=== PATIENT | female | born 1935 | race Caucasian/White ===

== ENCOUNTER 2017-03-09 11:24 | Emergency (ER) | payer BC ==
[2017-03-09] MEDS ORDERED: KETOROLAC 60 MG/2 ML VIAL IM STA (11:52)
[2017-03-09] MEDS ORDERED: ORPHENADRINE CITRATE 60MG/2ML VIAL IM ONE (11:52)
--- NOTE | 2017-03-09 11:54 | Emergency Department Record ---
History of Present Illness - General Chief Complaint: Back Pain/Injury Stated Complaint: PAIN Time Seen by Provider: 03/09/17 11:46 Source: Patient, RN notes reviewed - History of Present Illness Initial Comments: flare up of her back pain and it started 3 days ago and she has chronic low back pain and seen by Dr. Teixeira for shots but not helping anymore. She went to chiro physician and they sent her to the ED because muscles tight. Pain radiates into right buttox MD Complaint: Back pain Onset/Timin -: Days(s) Similar Symptoms Previously: No Place: Home Radiation: Left leg, Right leg Severity scale (1-10): 10 Quality: Sharp Consistency: Constant Improves With: Sitting upright Worsens With: None Context: Unknown Associated Symptoms: Denies other symptoms Treatments Prior to Arrival: Acetaminophen - Related Data Previous Rx's Medication Instructions Recorded Furosemide [Lasix] 40 mg PO DAILY #30 tablet 02/14/15 Isosorbide Mononitrate [Imdur] 30 mg PO DAILY #30 tab.er.24h 02/04/16 Cyclobenzaprine HCl [Flexeril] 5 mg PO TID #30 tab 03/09/17 Allergies Allergy/AdvReac Type Severity Reaction Status Date / Time No Known Drug Allergies Allergy Unknown Verified 03/09/17 11:31 [NO KNOWN DRUG ALLERGIES] Travel Screening - Travel/Exposure Within Last 30 Days Have you traveled within the last 30 days?: No Review of Systems Reviewed: No additional complaints except as noted below Constitutional: Reports: As per HPI. Denies: Chills, Fever, Malaise, Night sweats, Weakness, Weight change Eyes: Reports: As per HPI. Denies: Eye discharge, Eye pain, Photophobia, Vision change ENT: Reports: As per HPI. Denies: Congestion, Dental pain, Ear pain, Epistaxis , Hearing loss, Throat pain Respiratory: Reports: As per HPI. Denies: Cough, Dyspnea, Hemoptysis, Stridor, Wheezes Cardiovascular: Reports: As per HPI. Denies: Arrhythmia, Chest pain, Dyspnea on exertion, Edema, Murmurs, Orthopnea, Palpitations, Paroxysmal nocturnal dyspnea, Rheumatic Fever, Syncope Endocrine: Reports: As per HPI. Denies: Fatigue, Heat or cold intolerance, Polydipsia, Polyuria Gastrointestinal: Reports: As per HPI. Denies: Abdominal pain, Constipation, Diarrhea, Hematemesis, Hematochezia, Melena, Nausea, Vomiting Genitourinary: Reports: As per HPI. Denies: Abnormal menses, Discharge, Dyspareunia, Dysuria, Frequency, Hematuria, Incontinence, Retention, Urgency Musculoskeletal: Reports: As per HPI, Back pain. Denies: Arthralgia, Gout, Joint swelling, Myalgia, Neck pain Skin: Reports: As per HPI. Denies: Bruising, Change in color, Change in hair/ nails, Lesions, Pruritus, Rash Neurological: Reports: As per HPI. Denies: Abnormal gait, Confusion, Headache, Numbness, Paresthesias, Seizure, Tingling, Tremors, Vertigo, Weakness Psychiatric: Reports: As per HPI. Denies: Anxiety, Auditory hallucinations, Depression, Homicidal thoughts, Suicidal thoughts, Visual hallucinations Hematological/Lymphatic: Reports: As per HPI. Denies: Anemia, Blood Clots, Easy bleeding, Easy bruising, Swollen glands Past Medical History - SOCIAL HISTORY Smoking Status: Never smoker Alcohol Use: None Drug Use: None - RESPIRATORY Hx Respiratory Disorders: No Hx Asthma: Yes Hx Bronchitis: Yes Hx Pneumonia: Yes Hx Sleep Apnea: Yes - CARDIOVASCULAR Hx Cardio Disorders: Yes Hx Abnormal EKG: Yes Hx CHF: Yes Hx Edema: Yes Hx Hypertension: Yes Hx Irregular Heartbeat: Yes (atrial fibrillation) - NEURO Hx Neuro Disorders: Yes Hx Dizziness: Yes Hx Headaches: Yes Hx TIA: Yes - GI Hx GI Disorders: No - Hx Genitourinary Disorders: Yes Hx UTI: Yes Comment:: urinary incont. 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 negative: External canal tenderness Nasal Exam: Normal inspection. negative: Discharge, Sinus tenderness Mouth exam: Normal external inspection, Tongue normal Teeth exam: Normal inspection. negative: Dental caries Throat exam: Normal inspection. negative: Tonsillar erythema, Tonsillar exudate - Neck Neck exam: Normal inspection, Full ROM. negative: Tenderness - Respiratory Respiratory exam: Normal lung sounds bilaterally. negative: Respiratory distress - Cardiovascular Cardiovascular Exam: Regular rate, Normal rhythm, Normal heart sounds - GI/Abdominal GI/Abdominal exam: Soft, Normal bowel sounds. negative: Tenderness - Rectal Rectal exam: Deferred - exam: Deferred - Extremities Extremities exam: Normal inspection, Full ROM, Normal capillary refill. negative: Tenderness - Back Back exam: Reports: Normal inspection, Full ROM, Muscle spasm, Tenderness (low back pain and into the right buttox). Denies: Rash noted - Neurological Neurological exam: Alert, Normal gait, Oriented X3, Reflexes normal - Psychiatric Psychiatric exam: Normal affect, Normal mood - Skin Skin exam: Dry, Intact, Normal color, Warm Course Vital Signs 03/09/17 11:31 Temperature 97.8 F Pulse Rate 75 Respiratory 20 Rate Blood Pressure 168/90 Pulse Ox 98 - Reevaluation(s) Reevaluation #1: feeling some better when not moving and still has pain with moving around 03/09/17 12:44 Disposition Clinical Impression: Strain of lumbar paraspinal muscle Qualifiers: Encounter type: initial encounter Qualified Code(s): S39.012A - Strain of muscle, fascia and tendon of lower back, initial encounter Disposition: Home, Self-Care Condition: (1) Good Instructions: Low Back Strain (ED) Additional Instructions: follow up with Dr Chaudhry in 5 days Prescriptions: Cyclobenzaprine HCl [Flexeril] 5 mg PO TID #30 tab Forms: Patient Portal Access Time of Disposition: 12:45 Quality - Quality Measures Quality Measures: N/A - Blood Pressure Screening Does Patient Have Any of the Following: Active Dx of HTN Blood Pressure Classification: Hypertensive Reading Systolic Measurement: 168 Diastolic Measurement: 90 Screening for High Blood Pressure: Patient Exclusion, Hx of HTN [G9744]
== END 2017-03-09 12:50 | disposition home or self-care (01) ==
LOC: ER 11:24
DX: S39.012A Strain of muscle, fascia and tendon of lower back, initial encounter (principal); I48.91 Unspecified atrial fibrillation; I10 Essential (primary) hypertension; I50.9 Heart failure, unspecified; X58.XXXA Exposure to other specified factors, initial encounter; Y92.009 Unspecified place in unspecified non-institutional (private) residence as the place of occurrence of the external cause
CPT/HCPCS: 96372; 99283; J1885; J2360

== ENCOUNTER 2017-09-05 14:46 | Emergency (ER) | payer BC ==
--- NOTE | 2017-09-05 15:11 | Emergency Department Record ---
History of Present Illness - General Chief Complaint: Chest Pain Stated Complaint: CHEST PAIN Time Seen by Provider: 09/05/17 15:00 Source: Patient Mode of Arrival: Ambulatory Limitations: No limitations - History of Present Illness Initial Comments: 81 yo female presents with 20 minutes of central chest pressure prior to arrival. The discomfort is now gone. She had just eaten lunch at a local adult care unit. She did feel nauseated. She currently is completely pain free. She denies and current shortness of breath. No pain with deep inspiration. She is at [facility] for recovery from recent back surgery which is improved. Cardiology is Dr Valero for atrial fibrillation. PCP is Dr Chaudhry. She has a history of CAD with 2 stents the last in 2000. She has Afib, CHF, Cardiomyopathy. She does not recall nor does her some when her last stress test was performed. MD Complaint: Chest pain Onset/Timin -: Hour(s) Onset: After eating Pain Location: Substernal Pain Radiation: None Quality: Aching Consistency: Intermittent Improves With: Nothing Worsens With: Nothing Treatments Prior to Arrival: None - Related Data Previous Rx's Medication Instructions Recorded Furosemide [Lasix] 40 mg PO DAILY #30 tablet 02/14/15 Allergies Allergy/AdvReac Type Severity Reaction Status Date / Time No Known Drug Allergies Allergy Unknown Verified 03/09/17 11:31 [NO KNOWN DRUG ALLERGIES] Travel Screening - Travel/Exposure Within Last 30 Days Have you traveled within the last 30 days?: No - Travel/Exposure Within Last Year Have you traveled outside the [place] in the last year?: No - Additonal Travel Details Have you been exposed to anyone with a communicable illness?: No - Travel Symptoms Symptom Screening: None Review of Systems Constitutional: Denies: Chills, Fever, Night sweats, Weakness Eyes: Denies: Eye discharge ENT: Denies: Congestion, Throat pain Respiratory: Denies: Cough, Dyspnea, Hemoptysis, Stridor, Wheezes Cardiovascular: Reports: As per HPI, Chest pain, Palpitations. Denies: Syncope Endocrine: Denies: Fatigue, Polydipsia, Polyuria Gastrointestinal: Denies: Abdominal pain, Diarrhea, Nausea, Vomiting Genitourinary: Denies: Dysuria, Urgency Musculoskeletal: Denies: Arthralgia, Back pain, Joint swelling, Myalgia Skin: Denies: Bruising, Change in color, Rash Neurological: Denies: Headache, Numbness, Weakness Psychiatric: Denies: Anxiety, Visual hallucinations Hematological/Lymphatic: Denies: Blood Clots, Easy bleeding, Easy bruising, Swollen glands Past Medical History - SOCIAL HISTORY Smoking Status: Never smoker Alcohol Use: None Drug Use: None - RESPIRATORY Hx Respiratory Disorders: No Hx Asthma: Yes Hx Bronchitis: Yes Hx Pneumonia: Yes Hx Sleep Apnea: Yes - CARDIOVASCULAR Hx Cardio Disorders: Yes Hx Abnormal EKG: Yes Hx CHF: Yes Hx Edema: Yes Hx Hypertension: Yes Hx Irregular Heartbeat: Yes (atrial fibrillation) Comment:: 2- stents - NEURO Hx Neuro Disorders: Yes Hx Dizziness: Yes Hx Headaches: Yes Hx TIA: Yes - GI Hx GI Disorders: No Hx Wt Loss/Wt Gain: Yes - Hx Genitourinary Disorders: Yes Hx UTI: Yes Comment:: urinary incont. 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 negative: Conjunctival injection, Scleral icterus - ENT ENT exam: Normal exam, Mucous membranes moist Ear exam: Normal external inspection Nasal Exam: Normal inspection Mouth exam: Normal external inspection Teeth exam: Normal inspection Throat exam: Normal inspection - Neck Neck exam: Normal inspection, Full ROM. negative: Tenderness - Respiratory Respiratory exam: Normal lung sounds bilaterally. negative: Respiratory distress, Rhonchi, Stridor, Wheezes - Cardiovascular Cardiovascular Exam: Regular rate, Irregular rhythm Peripheral Pulses: 2+: Radial (R), Radial (L) - GI/Abdominal GI/Abdominal exam: Soft. negative: Normal bowel sounds, Distended, Hypoactive bowel sounds, Rebound, Rigid, Tenderness - Rectal Rectal exam: Deferred - exam: Deferred - Extremities Extremities exam: Normal inspection, Full ROM, Normal capillary refill, Pedal edema (mild +1 equal and symmetric). negative: Tenderness - Back Back exam: Reports: Normal inspection, Full ROM. Denies: Muscle spasm, Rash noted, Tenderness - Neurological Neurological exam: Alert, Normal gait, Oriented X3 - Psychiatric Psychiatric exam: Normal affect, Normal mood. negative: Agitated, Anxious - Skin Skin exam: Dry, Intact, Normal color, Warm Course Vital Signs 09/05/17 14:48 Temperature 97.6 F Pulse Rate 60 Respiratory 16 Rate Blood Pressure 147/65 Pulse Ox 97 - Reevaluation(s) Reevaluation #1: EKG at 14:58 Atrial fibrillation fate of 64, intervals QTC is 472, axis normal, LVH with LBBB, unchanged from her prior EKG on 06/27/17 The patient is 0/10 on a pain scale. She states she has no symptoms now and has not since she was at [facility] lasting about 20 minutes. Her EKG is unchanged from the EKG on 06/27/17 The CXR was reviewed. Decrease in mild PVC with CMG. 09/05/17 17:43 The labs were reviewed No acute changes on the CBC The troponin is normal The BNP is elevated at greater that 2000 but lower than prior. 09/05/17 18:13 I SW the patient at length about her future wishes regarding cardiac care. She states that if she did have a heart attach she would consent to a heart cath or if she had an abnormal stress test she would as well. I call [facility] and spoke with Dr Lutz of [facility] for Dr Valero. He accepts the patient for evaluation given no recent stress test. Medical Decision Making - Lab Data Result diagrams: 09/05/17 16:55 09/05/17 16:55 Disposition Disposition: Transfer Clinical Impression: Chest pain, Atrial fibrillation, Acute CHF (congestive heart failure) Disposition: Acute Care Hospital [facility] Reason For Transfer: chest pain, CAD, Accepting Physician: Voice Time Discussed w/Accepting Physician: 18:15 Condition: (2) Stable Forms: Patient Portal Access Time of Disposition: 18:15 Quality - Quality Measures Quality Measures: N/A - Blood Pressure Screening Does Patient Have Any of the Following: Active Dx of HTN Blood Pressure Classification: Hypertensive Reading Systolic Measurement: 147 Diastolic Measurement: 65 Screening for High Blood Pressure: Patient Exclusion, Hx of HTN [G9744]
[2017-09-05 17:03] LABS: HEMATOCRIT 38.6 % (35.0-47.0); HEMOGLOBIN 12.6 gm/dl (11.6-16.0); MEAN CELL VOLUME 90.2 fl (81-97); MEAN CORPUSCULAR HEMOGLOBIN 29.4 pg (27-33); MEAN CORPUSCULAR HGB CONC 32.6 g/dl (32-36); MEAN PLATELET VOLUME 10.6 fl (7.4-10.4); PLATELET COUNT 230 K/uL (130-400); RED BLOOD COUNT 4.28 M/uL (3.80-5.40); RED CELL DISTRIBUTION WIDTH 13.7 % (11.5-14.5); WHITE BLOOD COUNT W/O DIFF 10.2 K/uL (4.2-12.2)
[2017-09-05 17:13] LABS: BLOOD UREA NITROGEN 10 mg/dL (8-23); CREATININE 0.8 mg/dL (0.5-0.9); EST GLOMERULAR FILTRATION RATE > 60 mL/min
[2017-09-05 17:14] LABS: INR 1.6; PROTHROMBIN TIME (PATIENT) 17.7 SECONDS (9.5-12.1)
[2017-09-05 17:16] LABS: GLUCOSE,RANDOM 109 mg/dL (74-109)
--- NOTE | 2017-09-06 11:02 | RADIOLOGY REPORT ---
EXAM: CHEST, TWO VIEWS HISTORY: CHEST PAIN SINCE NOON TODAY. TECHNIQUE: PA and lateral views of the chest were obtained. Comparison: Two view chest 05/18/16. FINDINGS: Cardiomegaly is again evident. Mild blunting of the costophrenic angles slightly less pronounced than before. There also appears to be decrease in the interstitial prominence previously seen and regression in pulmonary venous hypertension in the interval. No acute alveolar infiltrate seen. Thoracic curve to the right again evident. There appears to be an implantable loop recorder device in place along the lower left anterior chest wall, also present previously. IMPRESSION: 1. PERSISTENT CARDIOMEGALY. MILD BLUNTING OF THE LATERAL COSTOPHRENIC ANGLES DECREASED FROM BEFORE AND ALSO DECREASE IN VASCULAR CONGESTION SEEN BACK ON 02/23. 2. THERE IS PROBABLY A LOOP RECORDER DEVICE IN PLACE OVERLYING THE LOWER LEFT ANTERIOR CHEST WALL, ALSO PRESENT PREVIOUSLY. JOB NUMBER: [id number] MTDD
== END 2017-09-05 22:00 | disposition short-term general hospital (02) ==
LOC: ER 14:46
DX: R07.89 Other chest pain (principal); I50.9 Heart failure, unspecified; I48.91 Unspecified atrial fibrillation; R11.0 Nausea; R06.02 Shortness of breath; Z95.5 Presence of coronary angioplasty implant and graft; I10 Essential (primary) hypertension; I25.10 Atherosclerotic heart disease of native coronary artery without angina pectoris
CPT/HCPCS: 71046; 80048; 83880; 84484; 85027; 85610; 85730; 93005; 93010; 99285

== ENCOUNTER 2018-06-07 17:55 | Observation (INO) | payer BC ==
--- NOTE | 2018-06-07 18:15 | Emergency Department Record ---
History of Present Illness - General Chief Complaint: Dizziness Stated Complaint: dizziness Time Seen by Provider: 06/07/18 17:59 Source: Patient Mode of Arrival: Ambulatory Limitations: No limitations - History of Present Illness Initial Comments: 82 yo female presents to ED for evaluation of dizziness with position changes that began approximately 8 hours ago. Patient reports that change in position worsens her symptoms, denies that [id number] movement of the head worsens her symptoms. Patient denies fevers, chills, or recent illness. Patient denies focal weakness symptoms or change in vision/speech. MD Complaint: Dizziness Onset/Timin -: Hour(s) Description: Off-balance Improves With: Nothing Worsens With: Position Associated Symptoms: Denies other symptoms - Gavin Coma Scale Eye Response: (4) Open spontaneously Motor Response: (6) Obeys commands Verbal Response: (5) Oriented Jackson Total: 15 - Related Data Home Medications Medication Instructions Recorded Confirmed Last Taken Acetaminophen [Tylenol 325Mg] 650 mg PO Q6H 06/07/18 06/07/18 06/07/18 Benzonatate [Tessalon Perle] 100 mg PO QHS 06/07/18 06/07/18 06/06/18 Guaifenesin/Dextromethorphan 237 ml PO QHS PRN 06/07/18 06/07/18 Unknown [Robitussin Cough-Chest Dm Liq] Lisinopril 20 mg PO DAILY 06/07/18 06/07/18 06/07/18 Loperamide HCl [Immodium] 2 mg PO ASDIR PRN 06/07/18 06/07/18 Unknown Metoprolol Succinate 50 mg PO DAILY 06/07/18 06/07/18 06/07/18 Oxybutynin Chloride [Oxybutynin 15 mg PO DAILY 06/07/18 06/07/18 06/07/18 Chloride ER] Vit C/Vit E AC/Lut/Copper/Zinc 1 tab PO DAILY 06/07/18 06/07/18 Unknown [PreserVision Lutein Softgel] Previous Rx's Medication Instructions Recorded Furosemide [Lasix] 40 mg PO DAILY #30 tablet 02/14/15 Allergies Allergy/AdvReac Type Severity Reaction Status Date / Time No Known Drug Allergies Allergy Unknown Verified 06/07/18 18:52 [NO KNOWN DRUG ALLERGIES] Travel Screening - Travel/Exposure Within Last 30 Days Have you traveled within the last 30 days?: No - Travel/Exposure Within Last Year Have you traveled outside the [place] in the last year?: No - Additonal Travel Details Have you been exposed to anyone with a communicable illness?: No - Travel Symptoms Symptom Screening: None Review of Systems Constitutional: Denies: Chills, Fever, Malaise, Night sweats Eyes: Denies: Eye discharge, Eye pain, Photophobia ENT: Denies: Congestion, Ear pain, Epistaxis Respiratory: Denies: Cough, Dyspnea Cardiovascular: Denies: Chest pain, Dyspnea on exertion Endocrine: Denies: Fatigue, Heat or cold intolerance Gastrointestinal: Denies: Abdominal pain, Nausea, Vomiting Genitourinary: Denies: Incontinence, Retention Musculoskeletal: Denies: Arthralgia, Back pain Skin: Denies: Bruising, Change in color Neurological: Reports: Vertigo. Denies: Abnormal gait, Confusion, Headache, Tingling, Tremors Psychiatric: Denies: Anxiety Hematological/Lymphatic: Denies: Anemia, Blood Clots Past Medical History - SOCIAL HISTORY Smoking Status: Never smoker Alcohol Use: None Drug Use: None - RESPIRATORY Hx Respiratory Disorders: No Hx Asthma: Yes Hx Bronchitis: Yes Hx Pneumonia: Yes Hx Sleep Apnea: Yes - CARDIOVASCULAR Hx Cardio Disorders: Yes Hx Abnormal EKG: Yes Hx CHF: Yes Hx Edema: Yes Hx Hypertension: Yes Hx Irregular Heartbeat: Yes (atrial fibrillation) Comment:: 2- stents - NEURO Hx Neuro Disorders: Yes Hx Dizziness: Yes Hx Headaches: Yes Hx TIA: Yes - GI Hx GI Disorders: No Hx Wt Loss/Wt Gain: Yes - Hx Genitourinary Disorders: Yes Hx UTI: Yes Comment:: urinary incont. 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 negative: Conjunctival injection, Periorbital swelling, Periorbital tenderness, Scleral icterus - ENT Ear exam: negative: Auricular hematoma, Auricular trauma Nasal Exam: negative: Active bleeding, Discharge, Dried blood, Foreign body Mouth exam: negative: Drooling, Laceration, Muffled voice, Tongue elevation - Neck Neck exam: Normal inspection. negative: Meningismus, Tenderness - Respiratory Respiratory exam: Normal lung sounds bilaterally. negative: Respiratory distress, Rhonchi, Stridor, Wheezes - Cardiovascular Cardiovascular Exam: Normal heart sounds, Irregular rhythm - GI/Abdominal GI/Abdominal exam: Soft. negative: Distended, Rebound, Rigid, Tenderness - Rectal Rectal exam: Deferred - exam: Deferred - Extremities Extremities exam: negative: Calf tenderness, Tenderness - Back Back exam: Denies: CVA tenderness (R), CVA tenderness (L) - Neurological Neurological exam: Alert, Normal gait, Oriented X3 - Psychiatric Psychiatric exam: Normal affect, Normal mood - Skin Skin exam: Normal color. negative: Abrasion Type of lesion: negative: abrasion Course Vital Signs 06/07/18 17:59 Temperature 97.5 F L Pulse Rate 76 Respiratory 18 Rate Blood Pressure 156/90 Pulse Ox 97 - Reevaluation(s) Reevaluation #1: 06/07/18 18:16 EKG: Atrial Fibrillation 84 LBBB No significant change from previous Reevaluation #2: 06/07/18 18:45 Laboratory studies were reviewed and are grossly unremarkable for an acute process. CT Brain: No acute intra-cranial process. Reevaluation #3: 06/07/18 19:02 UA reviewed and appears negative for an acute process. Patient reports feeling very off-balance when standing to provide UA sample with bedside commode. Will admit as the patient is a significant fall risk and on anticoagulation medications. Reevaluation #4: 06/07/18 19:09 Case was discussed with Tg Carmnoa NP, will accept admission at this time. Medical Decision Making - Lab Data Result diagrams: 06/07/18 18:17 06/07/18 18:17 Disposition Disposition: Admit Clinical Impression: Vertigo Disposition: Still a Patient at [facility] Decision to Admit: Admit from ER Decision to Admit Date: 06/07/18 Decision to Admit Time: 19:10 Condition: (2) Stable Forms: Patient Portal Access Time of Disposition: 19:10 Quality - Quality Measures Quality Measures: N/A - Blood Pressure Screening Does Patient Have Any of the Following: Active Dx of HTN Blood Pressure Classification: Hypertensive Reading Systolic Measurement: 156 Diastolic Measurement: 90 Screening for High Blood Pressure: Patient Exclusion, Hx of HTN [G9744]
[2018-06-07] MEDS ORDERED: MECLIZINE 25 MG TABLET PO ONE (18:20)
[2018-06-07 18:24] LABS: BASO % 0.5 % (0-6); EOS % 2.5 % (0-6); GRAN % 50.5 % (47-80); HEMATOCRIT 45.5 % (35.0-47.0); HEMOGLOBIN 14.9 gm/dl (11.6-16.0); MEAN CORPUSCULAR HEMOGLOBIN 29.8 pg (27-33); MEAN CORPUSCULAR HGB CONC 32.7 g/dl (32-36); MEAN PLATELET VOLUME 10.5 fl (7.4-10.4); MONO % 9.5 % (0-9); PLATELET COUNT 216 K/uL (130-400); RED CELL DISTRIBUTION WIDTH 13.8 % (11.5-14.5); WHITE BLOOD COUNT W/O DIFF 7.3 K/uL (4.2-12.2)
[2018-06-07 18:37] LABS: BLOOD UREA NITROGEN 11 mg/dL (8-23); CREATININE 0.8 mg/dL (0.5-0.9); EST GLOMERULAR FILTRATION RATE > 60 mL/min
[2018-06-07 18:38] LABS: TOTAL PROTEIN 7.3 g/dL (6.6-8.7)
[2018-06-07 18:40] LABS: GLUCOSE,RANDOM 83 mg/dL (74-109)
[2018-06-07 18:42] LABS: ALB/GLOB RATIO 1.3 (1.1-1.8); ALBUMIN 4.1 g/dL (4.0-5.0); ALT/SGPT 10 U/L (<33); AST/SGOT 16 U/L (10.0-35.0)
[2018-06-07 18:43] LABS: ALKALINE PHOSPHATASE 175 U/L (35-104)
[2018-06-07 19:01] LABS: URINE APPEARANCE CLEAR; URINE BILIRUBIN NEGATIVE (NEGATIVE); URINE BLOOD NEGATIVE (NEGATIVE); URINE COLOR YELLOW; URINE GLUCOSE (UA) NEGATIVE (NEGATIVE); URINE KETONE NEGATIVE (NEGATIVE); URINE LEUKOCYTE ESTERASE NEGATIVE (NEGATIVE); URINE NITRITE NEGATIVE (NEGATIVE); URINE PROTEIN NEGATIVE (NEGATIVE); URINE UROBILINOGEN 0.2 E.U./dL (0.20 - 1.00)
[2018-06-07] MEDS ORDERED: 0.9 % SODIUM CHLORIDE 1000ML 1,000 ML IV PRN (19:47)
[2018-06-07] MEDS ORDERED: MECLIZINE 25 MG TABLET PO PRN (19:47)
[2018-06-07] MEDS ORDERED: ACETAMINOPHEN 325 MG TAB PO PRN (19:47)
[2018-06-07] MEDS ORDERED: ALBUTEROL HFA 8 GM INHALER INH PRN (19:47)
[2018-06-07] MEDS ORDERED: GUAIFENESIN/D-METH. 10 ML UDC PO PRN (20:00)
[2018-06-07] MEDS: BENZONATATE 100 MG CAPSULE PO SCH (21:30)
[2018-06-07] MEDS: TRAZODONE 50 MG TABLET PO SCH (21:31)
[2018-06-07] MEDS: DABIGATRAN ETEXILATE MESYLATE 150 MG PO SCH (21:52)
[2018-06-08] MEDS: POTASSIUM CHLORIDE 10 MEQ TAB PO SCH ×2 (06:08→15:32)
--- NOTE | 2018-06-08 07:19 | CT SCAN REPORT ---
EXAM: CT OF THE BRAIN WITHOUT CONTRAST HISTORY: INJURY. TECHNIQUE: Sequential axial images were obtained from the foramen magnum to the vertex without contrast administration. FINDINGS: Age appropriate cortical atrophy. Periventricular small vessel ischemia. No large territorial infarct, hemorrhage, mass effect or midline shift. No extraaxial fluid collection. The orbits, paranasal sinuses, and mastoid air cells are normal. IMPRESSION: 1. NO ACUTE INTRACRANIAL ABNORMALITY IS APPRECIATED. 2. PERIVENTRICULAR SMALL VESSEL ISCHEMIA. JOB NUMBER: [id number] [facility]
[2018-06-08] MEDS ORDERED: FLUTICASONE PROPIONATE 50MCG NASAL 16 GM BTL ONE (09:54)
[2018-06-08] MEDS ORDERED: AMLODIPINE BESYLATE 5MG TAB PO SCH ×2 (10:00→22:00)
[2018-06-08] MEDS: FLUTICASONE PROPIONATE 50MCG NASAL 16 GM BTL SCH ×2 (10:28→21:26)
[2018-06-08] MEDS: METOPROLOL SUCC 50 MG TABLET PO SCH (10:29)
[2018-06-08] MEDS: FUROSEMIDE 40 MG TABLET PO SCH (10:29)
[2018-06-08] MEDS: TRAZODONE 50 MG TABLET PO SCH (10:29)
[2018-06-08] MEDS: OXYBUTYNIN CHLORIDE 5MG TABLET PO SCH ×3 (10:29→21:27)
[2018-06-08] MEDS: LISINOPRIL 20 MG TABLET PO SCH (10:29)
--- NOTE | 2018-06-08 11:45 | Rehab Evaluation ---
Patient Information - Patient Information Diagnosis: Dizziness Ordered Treatment: PT Evaluate and Treat Status: Initial Evaluation Surgery: No History: Detail (Pt presented to ED 06/07/18 w/one day duration of dizziness. She was admitted to [facility] due to fall risk and current anti-coagulation.) Past Medical/Surgical Hx: PAST MEDICAL/SURGICAL HISTORY Past Surgical History fx arm repair, cataract, hyst, ankle surgery, cardiac stents (2) back surgery PMH - Respiratory Hx Respiratory Disorders No Hx Asthma Yes Hx Bronchitis Yes Hx Pneumonia Yes Hx Sleep Apnea Yes Hx Tuberculosis No Hx of CPAP No PMH - Cardiovascular Hx Cardiovascular Disorders Yes Hx Abnormal EKG Yes Hx Congestive Heart Failure Yes Hx Edema Yes Hx Hypertension Yes Hx Irregular Heartbeat Yes: atrial fibrillation Hx Transient Ischemic Attacks Yes (TIA) Comment: 2- stents PMH - Neuro Hx Neurological Disorders Yes Hx Dizziness Yes Hx Headaches Yes Hx Syncope Yes Hx Transient Ischemic Attacks Yes (TIA) PMH - GI Hx Gastrointestinal Disorders No Hx Weight Loss/Weight Gain Yes PMH - Hx Genitourinary Disorders Yes Patient No Hx Urinary Tract Infection Yes Comment: urinary incont. 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 She reports that she had a fall about a month ago when she tripped over a magazine rack in her room. She had foot and knee abrasions but no major injury. She was able to crawl to the emergency pull cord for assistance to get up from the floor.) Social History: Detail Precautions: [place], Fall - Time With Patient Treatment Procedures: Detail (PT evaluation) Subjective Information - Subjective Information Per Patient (Pt lying in bed on her L side, awake, alert, cooperative for therapy. Denies dizziness in L sidelying, mild dizziness in supine. Increased dizziness w/coming to sit, mild dizziness w/coming to stand. Denies nausea or headache.) Objective Data - Pain Pain Present: No - Mental Status Patient Orientation: Oriented x3 - Visual Perception Appears within normal limits for therapeutic activities - ROM Within normal limits - Strength/Tone Within normal limits - Coordination Appears within normal limits for therapeutic activities - Bed Mobility Needs Assist (Required minimal assist to move from L sidelying to sitting at edge of bed due to fear of falling from bed.) - Transfers Needs Assist (Supervision for sit/stand transtion from bed to walker, bedside chair<>walker. VCs to reach for chair armrest to control descent.) - Balance Balance Sitting: Good Balance Standing: Good (With front wheeled walker) - Gait Detail (Pt ambulated from bedside to end of unit and back to bedside chair w/ four wheeled walker and CGA/SBA. Denied dizziness while walking, no shortness of breath or difficulty.) - Special Tests Yes (Performed B hallpike tests w/pt in bed. Did not observe nystagmus clearly but pt reported increased symptoms (intensity and duration) in L hallpike than R. Performed canalith repositioning maneuver for R posterior semicircular canalithiasis prior to getting pt out of bed.) Therapy Assessment - Therapy Assessment Detail (Pt reports dizziness w/position changes; she experienced increased symptoms in L hallpike position that resolved within a minute or two. She may be experiencing benign paroxysmal positional vertigo, but she is being further assessed medically. She is a good candidate for inpatient physical therapy.) Patient Education - Patient Education Teaching Topic: Precautions Response: Verbalize Understanding Teaching Method: Discussion Teaching Recipient: Patient Barriers To Learning: None Problem List - Problem List Physical Therapy Problem List: Detail (1. Dizziness w/position changes. 2. History of fall. 3. Requires assist for bed mobility.) Goals - Goals Physical Therapy Goals: 1. Pt will safely get into and out of bed w/ supervision. 2. Pt will report decreased dizziness w/position changes. 3. Pt will demonstrate good understanding of moving slowly through position changes to manage symptoms. Prognosis - Prognosis Good Plan - Plan Physical Therapy Plan: Pt will be seen 1-2x daily M-F as needed to facilitate bed mobility, transfers, gait, and self-management.
[2018-06-08] MEDS: DABIGATRAN ETEXILATE MESYLATE 150 MG PO SCH ×2 (11:49→21:26)
--- NOTE | 2018-06-08 21:14 | History & Physical ---
History of Present Illness - Date of Service Date of Service for History & Physical: 06/09/18 - History of Present Illness Admitting Diagnosis: Vertigo. Fall Risk History of Present Illness: 82 yo female presents for admission for dizziness. Pt lives in senior assisted living [facility], was getting her hair done, stood from the chair and felt dizzy, did not resolve with time or rest. This has happened before, but pt reports this sensation is a little different. PMH TIAs HTN, ... 06/07/18 Pt presented to [facility] ER for dizziness. EKG negative for acute process, CT head negative for bleed Pt was medicated with antivert, little resolve. WBC 7.3, Hgb 14.9, Hct, Plt 216 NA 139, K 3.9, Cl 100, Co 27, BUN 11, Cr 0.8, >60, Alk Phose 175, Trop <0.010 BP 156/90, HR 76, RR 18, 97RA, 97.5F Admission for dizziness 06/08/18 Pt resting in bed, no acute distress. Pt a&ox4, NIH negative. Pt is moving all extremities with no difficult, some assistance needed to sit up but denies making dizziness any better or worse. HEENT normal outside of left TM bulging with fluid level noted. Right TM normal. Lungs diminished, jackie bases have fine crackles noted. No SOB noted. +1 pitting edema to jackie ankles, pulses 3+ PT/DP. Pt is tolerating PO with no issues. Awaiting carotid US and orthostatic vitals. Dr Sousa updated on admission and reports to continue with hospitalist admission but he will see pt Tuesday 1pm for follow up. Update- pt has positive orthostatic BP and HR. Med Rec completed, trazadone BID changed to HS, metoprolol held, Norvasc changed to HS PCP [facility] Travel Screening - Travel/Exposure Within Last 30 Days Have you traveled within the last 30 days?: No - Travel/Exposure Within Last Year Have you traveled outside the [place] in the last year?: No - Additonal Travel Details Have you been exposed to anyone with a communicable illness?: No - Travel Symptoms Symptom Screening: None Review of Systems Constitutional: Denies: Chills, Fever, Malaise, Night sweats Eyes: Denies: Eye discharge, Eye pain, Photophobia ENT: Denies: Congestion, Ear pain, Epistaxis Respiratory: Denies: Cough, Dyspnea Cardiovascular: Denies: Chest pain, Dyspnea on exertion Endocrine: Denies: Fatigue, Heat or cold intolerance Gastrointestinal: Denies: Abdominal pain, Nausea, Vomiting Genitourinary: Denies: Incontinence, Retention Musculoskeletal: Denies: Arthralgia, Back pain Skin: Denies: Bruising, Change in color Neurological: Reports: Vertigo. Denies: Abnormal gait, Confusion, Headache, Tingling, Tremors Psychiatric: Denies: Anxiety Hematological/Lymphatic: Denies: Anemia, Blood Clots Past Medical History - SOCIAL HISTORY Smoking Status: Never smoker Alcohol Use: None Drug Use: None - RESPIRATORY Hx Respiratory Disorders: No Hx Asthma: Yes Hx Bronchitis: Yes Hx Pneumonia: Yes Hx Sleep Apnea: Yes - CARDIOVASCULAR Hx Cardio Disorders: Yes Hx Abnormal EKG: Yes Hx CHF: Yes Hx Edema: Yes Hx Hypertension: Yes Hx Irregular Heartbeat: Yes (atrial fibrillation) Comment:: 2- stents - NEURO Hx Neuro Disorders: Yes Hx Dizziness: Yes Hx Headaches: Yes Hx TIA: Yes - GI Hx GI Disorders: No Hx Wt Loss/Wt Gain: Yes - Hx Genitourinary Disorders: Yes Hx UTI: Yes Comment:: urinary incont. 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, surgically removed) Hx Blood Transfusions: Yes Hx Blood Transfusion Reaction: No Family Medical History Any Significant Family History?: No Hx Heart Disease: Mother Hx Stroke: Father H&P Meds/Allergies - Allergies Allergies: Allergies Allergy/AdvReac Type Severity Reaction Status Date / Time No Known Drug Allergies Allergy Unknown Verified 06/07/18 18:52 [NO KNOWN DRUG ALLERGIES] - Home Medications Home Medications Medication Instructions Recorded Confirmed Last Taken Acetaminophen [Tylenol 325Mg] 650 mg PO Q6H 06/07/18 06/07/18 06/07/18 Benzonatate [Tessalon Perle] 100 mg PO QHS 06/07/18 06/07/18 06/06/18 Guaifenesin/Dextromethorphan 237 ml PO QHS PRN 06/07/18 06/07/18 Unknown [Robitussin Cough-Chest Dm Liq] Lisinopril 20 mg PO DAILY 06/07/18 06/07/18 06/07/18 Loperamide HCl [Immodium] 2 mg PO ASDIR PRN 06/07/18 06/07/18 Unknown Metoprolol Succinate 50 mg PO DAILY 06/07/18 06/07/18 06/07/18 Oxybutynin Chloride [Oxybutynin 15 mg PO DAILY 06/07/18 06/07/18 06/07/18 Chloride ER] Vit C/Vit E AC/Lut/Copper/Zinc 1 tab PO DAILY 06/07/18 06/07/18 Unknown [PreserVision Lutein Softgel] Previous Rx's Medication Instructions Recorded Furosemide [Lasix] 40 mg PO DAILY #30 tablet 02/14/15 - Active Medications Active Medications: Current Medications Acetaminophen (Tylenol 325mg) 650 mg PO Q6H PRN PRN Reason: PAIN - MILD(1-4)/FEVER Albuterol Sulfate (Ventolin Hfa) 2 puff INH Q4H PRN PRN Reason: DIFFICULTY IN BREATHING Amlodipine Besylate (Norvasc) 5 mg PO QHS [facility] Benzonatate (Tessalon) 100 mg PO QHS [facility] Last Admin: 06/07/18 21:30 Dose: 100 mg Fluticasone Propionate (Flonase) 2 spray NA BID [facility] Last Admin: 06/08/18 10:28 Dose: 2 spray Furosemide (Lasix) 40 mg PO DAILY [facility] Last Admin: 06/08/18 10:29 Dose: 40 mg Guaifenesin (Robitussin Dm) 10 ml PO QHS PRN PRN Reason: COUGH Sodium Chloride () 1,000 mls @ 15 mls/hr IV .Q24H PRN PRN Reason: LARGE VOLUME IV Lisinopril (Zestril) 20 mg PO DAILY [facility] Last Admin: 06/08/18 10:29 Dose: 20 mg Meclizine HCl (Antivert) 25 mg PO Q8H PRN PRN Reason: DIZZINESS Metoprolol Succinate (Toprol Xl) 50 mg PO DAILY [facility] Last Admin: 06/08/18 10:29 Dose: Not Given Non-Formulary Medication (Dabigatran Etexilate Mesylate [Pradaxa]) 150 mg PO BID [facility] Last Admin: 06/08/18 11:49 Dose: 150 mg Oxybutynin Chloride (Ditropan) 5 mg PO TID [facility] Last Admin: 06/08/18 15:31 Dose: 5 mg Potassium Chloride (Klor-Con) 10 meq PO BIDAC [facility] Last Admin: 06/08/18 15:32 Dose: 10 meq Trazodone HCl (Desyrel) 100 mg PO QHS [facility] Physical Exam - Vital Signs Vital Signs: Vital Signs - Last 24 Hrs Temp Pulse Resp BP Pulse Ox 06/08/18 16:00 98.1 F 90 16 146/73 96 06/08/18 12:00 97.0 F L 81 16 138/74 96 06/08/18 09:00 16 06/08/18 08:00 98.1 F 74 16 152/71 98 06/08/18 05:51 64 18 135/69 95 06/07/18 21:00 16 - General General Appearance: Alert, Oriented x3, Cooperative, No acute distress Limitations: No limitations - Head Head exam: Atraumatic, Normocephalic, Normal inspection Head exam detail: negative: Abrasion, Contusion, Meraz's sign, General tenderness, Hematoma, Laceration - Eye Eye exam: Normal appearance. negative: Conjunctival injection, Periorbital swelling, Periorbital tenderness, Scleral icterus - ENT ENT exam: Mucous membranes moist, Normal external ear exam, Other (left TM fluid level, right TM normal) Ear exam: negative: Auricular hematoma, Auricular trauma Nasal Exam: negative: Active bleeding, Discharge, Dried blood, Foreign body Mouth exam: negative: Drooling, Laceration, Muffled voice, Tongue elevation - Neck Neck exam: Normal inspection. negative: Meningismus, Tenderness - Respiratory Respiratory exam: Decreased breath sounds, Other (fince crackles jackie bases). negative: Respiratory distress, Rhonchi, Stridor, Wheezes - Cardiovascular Cardiovascular Exam: Normal heart sounds, Irregular rhythm Peripheral Pulses: 3+: Radial (R), Radial (L), Dorsalis Pedis (R), Dorsalis Pedis (L) - GI/Abdominal GI/Abdominal exam: Soft. negative: Distended, Rebound, Rigid, Tenderness - Rectal Rectal exam: Deferred - exam: Deferred - Extremities Extremities exam: negative: Calf tenderness, Tenderness - Back Back exam: Denies: CVA tenderness (R), CVA tenderness (L) - Neurological Neurological exam: Alert, CN II-XII intact, Normal gait, Oriented X3 - Psychiatric Psychiatric exam: Normal affect, Normal mood - Skin Skin exam: Normal color. negative: Abrasion Type of lesion: negative: abrasion Results - Labs Result Diagrams: 06/07/18 18:17 06/07/18 18:17 - Imaging and Cardiology CT scan - head Status: Report reviewed VTE H&P Assessment - Risk for VTE Risk for VTE: Yes Risk Level: High Risk Assessment Date: 06/08/18 Risk Assessment Time: 10:00 VTE Orders Placed or Will Be Placed: No VTE Reason for No Prophylaxis: Contraindicated (pt on anticoagulation) Plan - Detailed Diagnosis and Plan (1) Vertigo Current Visit: Yes Status: Acute Base Code: R42 - DIZZINESS AND GIDDINESS Comment: 06/08/18 -anitvert PRN -Flonase for left otitis effusion -orthostatic vitals positive -Carotid US completed- pending report -CT head reviewed, no acute process Reassess AM for d/c assisted living 06/09/18 -Dizziness improved/resolved (only with head repositioning) -D/C to [facility], home PT with vestibular activities -PCP Merry Tuesday 1pm (2) DVT prophylaxis Current Visit: No Status: Acute Base Code: [id number] - Comment: 06/09/18 -Patient at high risk with Afib, age and restricted mobility -Continue patient's home medication of pradaxa 150mg PO BID
[2018-06-08] MEDS: BENZONATATE 100 MG CAPSULE PO SCH (21:27)
[2018-06-08] MEDS ORDERED: TRAZODONE 50 MG TABLET PO SCH (22:00)
[2018-06-09] MEDS: POTASSIUM CHLORIDE 10 MEQ TAB PO SCH (06:53)
--- NOTE | 2018-06-09 07:16 | US CAROTID DOPPLER REPORT ---
EXAM: BILATERAL CAROTID DOPPLER ULTRASOUND HISTORY: DIZZINESS. TECHNIQUE: Routine bilateral carotid arterial Doppler ultrasound examination was performed. Comparison: Carotid Doppler ultrasound 02/13/15. FINDINGS: 3 Vessel Right Peak Systolic/ End Diastolic Velocities Left Peak Systolic/ End Diastolic Velocities Proximal Common Carotid Artery 69.2 cm/s /7.6 cm/s 66.4 cm/s /10.4 cm/s Mid Common Carotid Artery 57 cm/s /8.7 cm/s 55.9 cm/s /10.4 cm/s Distal Common Carotid Artery 43.8 cm/s /7.6 cm/s 69.9 cm/s /8.7 cm/s Proximal Internal Carotid Artery 61.9 cm/s /9.5 cm/s 38.9 cm/s /14.2 cm/s Mid Internal Carotid Artery 74.1 cm/s /8.6 cm/s 68 cm/s /21.7 cm/s Distal Internal Carotid Artery 57.6 cm/s /13.0 cm/s 60.1 cm/s /15.6 cm/s Carotid Bulb 47.9 cm/s /6.0 cm/s 52.6 cm/s /8.5 cm/s Proximal External Carotid Artery 109 cm/s /8.9 cm/s 84 cm/s /10.2 cm/s d d d Right Flow Left Flow Vertebral Artery Antegrade/40.5 cm/s Antegrade/40.2 cm/s The right ICA/CCA ratio is 1.3. The left ICA/CCA ratio is 1.2. On the right, calcified plaques are noted in the distal CCA, right carotid bulb. On the left, small calcified plaques are noted in the mid and distal CCA. IMPRESSION: 1. 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 ANTEGRADE FLOW IN BOTH VERTEBRAL ARTERIES. JOB NUMBER: [id number] [facility]
[2018-06-09] MEDS: OXYBUTYNIN CHLORIDE 5MG TABLET PO SCH (09:50)
[2018-06-09] MEDS: FUROSEMIDE 40 MG TABLET PO SCH (09:50)
[2018-06-09] MEDS: LISINOPRIL 20 MG TABLET PO SCH (09:51)
[2018-06-09] MEDS: FLUTICASONE PROPIONATE 50MCG NASAL 16 GM BTL SCH (09:51)
[2018-06-09] MEDS: DABIGATRAN ETEXILATE MESYLATE 150 MG PO SCH (09:52)
--- NOTE | 2018-06-09 10:52 | Physical Therapy Tx Note ---
Physical Therapy Tx Note - Treatment Note Tolerated: Fair Total Time Spent With Patient: 20 Physical Therapy Tx Note: Detail (The patient was up in chair when PT arrived. The patient had complaints of slight lightheadedness but not as bad as yesterday. The patient was independent with sit to and from stand transfer. The patient ambulated with 4 wheeled walker a distance of 200 feet x 1 independently. The patient experienced increased lightheadedness when turning with her walker and sitting. The symptoms lasted aprox 45 seconds and then diminished. Patient also reported increased dizziness when tilting head to the left when talking to her son last night. Discussed with patient the importance of moving slowly through transitional movements and waiting for any symptoms of lightheadedness to pass. The patient exhibited good understanding of how to manage her symptoms and of possible inner ear/ vestibular system invovlement. Discussed with casework specialist need for ongoing vestibular rehab with a Home PT when patient is discharged.) Physical Therapy Problem List: Detail (1. Dizziness w/position changes. 2. History of fall. 3. Requires assist for bed mobility.) Physical Therapy Goals: 1. Pt will safely get into and out of bed w/ supervision. 2. Pt will report decreased dizziness w/position changes. 3. Pt will demonstrate good understanding of moving slowly through position changes to manage symptoms. Physical Therapy Plan: Pt will be seen 1-2x daily M-F as needed to facilitate bed mobility, transfers, gait, and self-management. Home PT for vestibular Rehab is recommended upon discharge.
--- NOTE | 2018-06-09 11:43 | Discharge Summary ---
Providers Discharge Summary Date: 06/09/18 Date of admission: 06/07/18 19:35 Expected Date of Discharge: 06/09/18 Attending physician: CONCETTA JAUREGUI Primary care physician: Suhail Sousa Physical Exam - Vital Signs Vital Signs: Vital Signs - Last 24 Hrs Temp Pulse Resp BP Pulse Ox 06/09/18 09:00 20 06/09/18 08:00 97.7 F 78 20 139/72 94 L 06/09/18 06:00 80 20 140/98 06/08/18 21:56 79 169/91 06/08/18 20:00 98.1 F 76 20 178/98 96 06/08/18 16:00 98.1 F 90 16 146/73 96 06/08/18 12:00 97.0 F L 81 16 138/74 96 - General General Appearance: Alert, Oriented x3, Cooperative, No acute distress Limitations: No limitations - Head Head exam: Atraumatic, Normocephalic, Normal inspection Head exam detail: negative: Abrasion, Contusion, Meraz's sign, General tenderness, Hematoma, Laceration - Eye Eye exam: Normal appearance. negative: Conjunctival injection, Periorbital swelling, Periorbital tenderness, Scleral icterus - ENT ENT exam: Mucous membranes moist, Normal external ear exam, Other (left TM fluid level, right TM normal) Ear exam: negative: Auricular hematoma, Auricular trauma Nasal Exam: negative: Active bleeding, Discharge, Dried blood, Foreign body Mouth exam: negative: Drooling, Laceration, Muffled voice, Tongue elevation - Neck Neck exam: Normal inspection. negative: Meningismus, Tenderness - Respiratory Respiratory exam: Decreased breath sounds, Other (fince crackles jose bases). negative: Respiratory distress, Rhonchi, Stridor, Wheezes - Cardiovascular Cardiovascular Exam: Normal heart sounds, Irregular rhythm Peripheral Pulses: 3+: Radial (R), Radial (L), Dorsalis Pedis (R), Dorsalis Pedis (L) - GI/Abdominal GI/Abdominal exam: Soft. negative: Distended, Rebound, Rigid, Tenderness - Rectal Rectal exam: Deferred - exam: Deferred - Extremities Extremities exam: negative: Calf tenderness, Tenderness - Back Back exam: Denies: CVA tenderness (R), CVA tenderness (L) - Neurological Neurological exam: Alert, CN II-XII intact, Normal gait, Oriented X3 - Psychiatric Psychiatric exam: Normal affect, Normal mood - Skin Skin exam: Normal color. negative: Abrasion Type of lesion: negative: abrasion Hospitalization - Hospitalization Admission Diagnosis: Vertigo. Fall Risk - Problem List/Discharge Diagnosis (1) Vertigo Current Visit: Yes Status: Acute Base Code: R42 - DIZZINESS AND GIDDINESS Comment: 06/08/18 -anitvert PRN -Flonase for left otitis effusion -orthostatic vitals positive -Carotid US completed- pending report -CT head reviewed, no acute process Reassess AM for d/c assisted living 06/09/18 -Dizziness improved/resolved (only with head repositioning) -D/C to [facility], home PT with vestibular activities -PCP Merry Tuesday 1pm (2) DVT prophylaxis Current Visit: No Status: Acute Base Code: [id number] - Comment: 06/09/18 -Patient at high risk with Afib, age and restricted mobility -Continue patient's home medication of pradaxa 150mg PO BID - Hospitalization Course Disposition: Home Health Service Hospital Course: 82 yo female presents for admission for dizziness. Pt lives in senior assisted living [facility], was getting her hair done, stood from the chair and felt dizzy, did not resolve with time or rest. This has happened before, but pt reports this sensation is a little different. PMH TIAs HTN, ... 06/07/18 Pt presented to [facility] ER for dizziness. EKG negative for acute process, CT head negative for bleed Pt was medicated with antivert, little resolve. WBC 7.3, Hgb 14.9, Hct, Plt 216 NA 139, K 3.9, Cl 100, Co 27, BUN 11, Cr 0.8, >60, Alk Phose 175, Trop <0.010 BP 156/90, HR 76, RR 18, 97RA, 97.5F Admission for dizziness 06/08/18 Pt resting in bed, no acute distress. Pt a&ox4, NIH negative. Pt is moving all extremities with no difficult, some assistance needed to sit up but denies making dizziness any better or worse. HEENT normal outside of left TM bulging with fluid level noted. Right TM normal. Lungs diminished, jose bases have fine crackles noted. No SOB noted. +1 pitting edema to jose ankles, pulses 3+ PT/DP. Pt is tolerating PO with no issues. Awaiting carotid US and orthostatic vitals. Dr Sousa updated on admission and reports to continue with hospitalist admission but he will see pt Tuesday 1pm for follow up. Update- pt has positive orthostatic BP and HR. Med Rec completed, trazadone BID changed to HS, metoprolol held, Norvasc changed to HS PCP Merry Procedures: Imaging and X-Rays 06/07/18 18:11 HEAD WO CONTRAST [CT] Stat 06/08/18 08:00 ARTERIAL DOPPLER CAROTID JOSE [US] Stat Cardiology Procedures 06/07/18 18:00 EKG NOW Abnormal Labs: Abnormal Lab Results 06/07/18 06/07/18 Range/Units 18:17 18:17 MPV 10.5 H (7.4-10.4) fl Monocytes % 9.5 H (0-9) % Alkaline Phosphatase 175 H (35-104) U/L Condition at Discharge: (2) Stable Discharge Medications - Discharge Medications Prescriptions: Fluticasone Propionate [Flonase] 1 spray NA ONCE #1 btl Meclizine HCl [Antivert] 25 mg PO Q8H PRN 10 Days #30 tablet PRN Reason: Dizziness Metoprolol Succinate [Toprol Xl] 25 mg PO DAILY #14 tab.er.24h Home Medications: Ambulatory Orders Dabigatran Etexilate Mesylate [Pradaxa] 150 mg PO BID 02/13/15 [Last Taken 06/07] Furosemide [Lasix] 40 mg PO DAILY #30 tablet 02/14/15 [Last Taken 06/07/18] Potassium Chloride 1 tab PO BIDAC 01/23/18 [Last Taken 06/07/18] Acetaminophen [Tylenol 325Mg] 650 mg PO Q6H 06/07/18 [Last Taken 06/07/18] Benzonatate [Tessalon Perle] 100 mg PO QHS 06/07/18 [Last Taken 06/06/18] Guaifenesin/Dextromethorphan [Robitussin Cough-Chest Dm Liq] 237 ml PO QHS PRN 06/07/18 [Last Taken Unknown] Lisinopril 20 mg PO DAILY 06/07/18 [Last Taken 06/07/18] Loperamide HCl [Immodium] 2 mg PO ASDIR PRN 06/07/18 [Last Taken Unknown] Oxybutynin Chloride [Oxybutynin Chloride ER] 15 mg PO DAILY 06/07/18 [Last Taken 06/07/18] Vit C/Vit E AC/Lut/Copper/Zinc [PreserVision Lutein Softgel] 1 tab PO DAILY [Last Taken Unknown] Acetaminophen [Tylenol 325Mg] 650 mg PO Q6H PRN tablet 06/09/18 [Last Taken Unknown] Amlodipine Besylate [Norvasc] 5 mg PO QHS tab 06/09/18 [Last Taken Unknown] Fluticasone Propionate [Flonase] 1 spray NA ONCE #1 btl 06/09/18 [Last Taken Unknown] Meclizine HCl [Antivert] 25 mg PO Q8H PRN 10 Days #30 tablet 06/09/18 [Last Taken Unknown] Metoprolol Succinate [Toprol Xl] 25 mg PO DAILY #14 tab.er.24h 06/09/18 [Last Taken Unknown] Trazodone HCl [Desyrel] 100 mg PO QHS tab 06/09/18 [Last Taken Unknown] Discharge Plan - Discharge Instructions Activity at Discharge: As Per Physical Therapy, Increase Activity as Tolerated Diet at Discharge: Low Fat, Low Cholesterol Quality Measures - Quality Measures Quality Measures: Advance Directives, Documentation of Current Medications in Medical Record, Elder Maltreatment Screen and Follow-Up Plan, Heart Failure, Screening for High Blood Pressure and F/U Documented - Current Medications Quality Measure: Measure #130: Documentation of Current Medications Documentation of Current Medications: <Current Medications Documented/Reviewed> [O7139] - Blood Pressure Screening Quality Measure: Screening for High Blood Pressure and Follow-Up Documented Does Patient Have Any of the Following: Active Dx of HTN Blood Pressure Classification: Pre-Hypertensive BP Reading Systolic Measurement: 139 Diastolic Measurement: 88 Screening for High Blood Pressure: Patient Exclusion, Hx of HTN [G9274] - Heart Failure (CONSTANTINO/ARB Therapy) Quality Measure: Heart Failure Left Ventricular Systolic Function: Moderately or Severely Depressed LVSF [3021F ] CONSTANTINO Inhibitor or ARB Therapy for LVSD: <CONSTANTINO Inhibitor or ARB therapy prescribed or currently taken> [4010F] - Heart Failure (Beta-arianna Therapy) Quality Measure: Heart Failure Left Ventricular Systolic Function: Moderately or Severely Depressed LVSF [3021F ] Beta-Arianna Therapy for LVEF < 40%: <Beta-Arianna Therapy Prescribed> [S3878] - Advance Directives Quality Measure: Measure #47: Care Plan Advance Directives Established: Yes Advance Directives Information Provided To Patient: Declined Advance Directives on File: No Living Will: Yes Power of Slipman: Yes Power of Slipman Name: Farhat De Guzman Advance Care Planning: <Care Plan/Decision Maker Documented; Discussed & Documented> [1123F] - Elder Abuse Suspicion Index Screening: Elder Abuse Suspicion Index Screening Rely on people for bathing, dressing, shopping, banking, etc: No Prevented from getting food, clothes, medication, etc: No Made to feel shamed or threatened by someone: No Forced to sign papers or use money against will: No Feel afraid, touched in ways not wanted or hurt physically: No Poor eye contact, withdrawn, malnourished, cuts or bruises: No Screening Result: Negative result EASI Reference Information: Bucky VILLANUEVA, Jose C, Srinivas D, Jeremy Chi.Development and validation of a tool to assist physicians identification of elder abuse: The Elder Abuse Suspicion Index (EASI ). Journal of Elder Abuse and Neglect, 2008; 20 (3): 276-300. - Elder Maltreatment Screen Quality Measures: Elder Maltreatment Screen and Follow-Up Plan Elder Maltreatment Screen: <Negative, No Follow-Up Plan Required> [C9551]
[2018-06-09] MEDS: METOPROLOL SUCC 50 MG TABLET PO SCH (11:47)
[2018-06-09] MEDS ORDERED: METOPROLOL SUCC 25 MG TAB.ER PO SCH (12:00)
--- NOTE | 2018-06-09 14:45 | Occupational Therapy Tx Note ---
Occupational Therapy Tx Note - Treatment Note Occupational Therapy Treatment Note: Detail (Pt discharged before OT eval able to be completed.)
== END 2018-06-09 15:30 | disposition home health service (06) ==
LOC: ER 17:55 → MEDSURG 19:35
PROVIDERS: ADMIT Internal Medicine; ATTEND Internal Medicine
DX: R42 Dizziness and giddiness (principal); Z91.81 History of falling; I48.91 Unspecified atrial fibrillation; I50.9 Heart failure, unspecified; E03.9 Hypothyroidism, unspecified; I10 Essential (primary) hypertension; R60.9 Edema, unspecified; M19.90 Unspecified osteoarthritis, unspecified site; R32 Unspecified urinary incontinence; Z86.73 Personal history of transient ischemic attack (TIA), and cerebral infarction without residual deficits; Z85.828 Personal history of other malignant neoplasm of skin; Z95.5 Presence of coronary angioplasty implant and graft
CPT/HCPCS: 70450; 80053; 81003; 84484; 85025; 93005; 93010; 93880; 97530; 99220; 99285